=== PATIENT | female | born 1930 | race Caucasian/White ===

== ENCOUNTER 2019-05-08 01:51 | Inpatient (IN) | payer MEDICARE, BC ==
[~2019-05-08] VITALS: Ht 154.9 cm; Wt 41.8 kg
[2019-05-08 04:45] VITALS: BP 171/62
[2019-05-08] MEDS ORDERED: MOM 30ML SUSPENSION UDC PO PRN (04:45)
[2019-05-08] MEDS ORDERED: MAALOX 30 ML SUSP *UDC PO PRN (04:45)
[2019-05-08] MEDS ORDERED: ACETAMINOPHEN TAB 650MG DOSE (2X325MG) PO PRN (04:45)
--- NOTE | 2019-05-08 04:55 | HPEPDOC ---
General Date of Admission Date of Service: May 08, 2019 Chief Complaint The patient is a 89-year-old female admitted with a reason for visit of Small Bowel Obstruction. Source: Patient, RN/MD Exam Limitations: No limitations Timing/Duration: Day(s) Severity: Moderate History of Present Illness Ms. Manzanares is an 89 years old woman who is transferred from [facility] ER for management of partial SBO. Pt reporst nausea, vomiting, abdominal pain/ distension and constipation for the past three days. She says she has not been able to take anything by mouth. In the ER, CT abd/pelv showed partial SBO. Pt has hx/o chronic pain and takes opioid at home on a regular basis. Pt denies chest pain, SOB, fever or chills. Vitals are good with moderately elevated BP and mild tachycardia due to pain on arrival. Mental status is good. ER Labs: CBC normal, Na 127, BUN34, Cr 1.2, K 4.4, CO2 23, CA 9.5. Liver panel is normal. Mg 2.0. Past Medical History Medical History CAD, AMI, Arhtritis, HLD, Sciatica, HTN Surgical History Bladder suspension, Cholecystectomy, , Hysterectomy Family History Significant Family History: No pertinent family hx Social History * Smoker: former Smoker Alcohol: Denies Drugs: denies A-FIB/CHADSVASC A-FIB History Current/History of A-Fib/PAF?: No Review of Systems Constitutional: Denies: Chills, Fever, Malaise, Night Sweats, Weakness Eyes: Denies: Pain, Vision change ENT: Denies: Head Aches, Ear Pain, Dysphagia Skin: Denies: Rash, Lesions Pulmonary: Denies: Dyspnea, Cough, Pleuritic Chest Pain Cardiovascular: Denies: Chest Pain, Edema Gastrointestinal: Reports: Nausea, Vomiting, Abdominal Pain, Constipation Genitourinary: Denies: Dysuria, Frequency Hematologic: Denies: Bruising, Bleeding Excessively Endocrine: Denies: Polydipsia Musculoskeletal: Reports: Back Pain; Denies: Neck Pain Neurological: Denies: Weakness, Numbness, Change in speech, Confusion Psych: Reports: Mood Normal; Denies: Anxiety, Depression Physical Examination General Exam: Positive: Alert, Cooperative, No Acute Distress Eye Exam: Positive: PERRLA, Conjunctiva & lids normal ENT Exam: Positive: Atraumatic, Other ENT (dry mucosa) Neck Exam: Positive: Supple; Negative: JVD Chest Exam: Positive: Clear to auscultation, Normal air movement Heart Exam: Positive: Tachycardic, Normal S1, Normal S2 Abdomen Exam: Positive: BS Hyperactive, Soft, Other (distended); Negative: Tenderness Extremity Exam: Positive: Normal pulses; Negative: Edema Skin Exam: Negative: Rash, Breakdown Neuro Exam: Positive: Normal Speech, Strength at 5/5 X4 ext, Normal Tone Psych Exam: Positive: Mental status NL, Mood NL, Anxiety, Oriented x 3 Vital Signs see nursing note Assessment/Plan Partial SBO with hx/o Abdominal Surgery and Chronic Opioid use - Admit to inpatient - Pt refuses NG tube placement - NPO, IV fluid, pain management - Monitor and supplement electrolytes - Consult Surgery if not improving with conservative management - Lovenox for DVT prophylaxis Continue home meds for other chronic conditions. Plan / VTE VTE Prophylaxis Ordered?: Yes Plan IVF: Initiate Diet: Make NPO Activity: Encourage Ambulation Diagnostics: Check Labs Anticipated Discharge: Home Advanced Directives: Do Not Resuscitate (DNR) KWAME MITCHELL MD May 08, 2019 04:55
[2019-05-08] MEDS ORDERED: MORPHINE 4 MG/ML 1ML VIAL/SYRINGE (J2270) IV PRN (05:00)
[2019-05-08] MEDS ORDERED: ONDANSETRON 4MG/2ML VIAL (J2405) IV PRN (05:00)
[2019-05-08] MEDS ORDERED: PRAV20TA2 PO (05:37)
[2019-05-08] MEDS ORDERED: LOSA50TA5 PO (05:37)
[2019-05-08] MEDS ORDERED: METO1TAB7 PO (05:38)
[2019-05-08] MEDS ORDERED: NORC1TAB8 PO (05:38)
[2019-05-08 05:51] LABS: HEMATOCRIT 31.6 % (36.0-47.0); HEMOGLOBIN 10.7 g/dl (12.0-15.5); MEAN CORPUSCULAR HEMOGLOBIN 30.2 pg (27.0-33.0); MEAN CORPUSCULAR HGB CONC 33.9 g/dl (32.0-36.5); MEAN CORPUSCULAR VOLUME 89.3 fl (80.0-96.0); PLATELET COUNT, AUTOMATED 245 10^3/uL (150-450); RED BLOOD COUNT 3.54 10^6/uL (4.00-5.40); WHITE BLOOD COUNT 6.7 10^3/uL (4.0-10.0)
[2019-05-08 06:14] LABS: ALBUMIN 3.2 GM/DL (3.2-5.2); ALT/SGPT 36 U/L (12-78); BILIRUBIN,TOTAL 0.6 MG/DL (0.2-1.0); BLOOD UREA NITROGEN 27 MG/DL (7-18); CALCIUM LEVEL 8.3 MG/DL (8.8-10.2); CARBON DIOXIDE LEVEL 23 MEQ/L (21-32); CHLORIDE LEVEL 97 MEQ/L (98-107); CREATININE FOR GFR 0.89 MG/DL (0.55-1.30); GLOMERULAR FILTRATION RATE > 60.0 (>32); GLUCOSE, FASTING 85 MG/DL (70-100); MAGNESIUM LEVEL 1.9 MG/DL (1.8-2.4); POTASSIUM SERUM 4.3 MEQ/L (3.5-5.1); SODIUM LEVEL 132 MEQ/L (136-145); TOTAL PROTEIN 6.7 GM/DL (6.4-8.2)
[2019-05-08] MEDS: KCL 20MEQ IN D5/NS 1000ML 1,000 ML IV SCH ×2 (06:22→18:47)
[2019-05-08] MEDS ORDERED: FLUBLOK(EGG FREE)(QUAD)INFLUENZA VACC 0.5ML SYRINGE (90682)18YRS&OLDER IM PRN (08:00)
--- NOTE | 2019-05-08 09:13 | REP ---
Acute abdominal series three views including PA chest and supine upright abdomen: There are no comparisons. PA chest: Lung suero are hyperinflated. There are no infiltrates, nodules, masses or pleural effusions. Cardiac size is normal. The colin, mediastinum, skeletal structures are unremarkable except for left shoulder chronic impingement. There is no free subdiaphragmatic air. Impression: Hyperinflation. No free subdiaphragmatic air. Abdomen, supine upright views: There is opaque material throughout the colon. There is no colonic distension or obstruction. There is no small bowel distension or obstruction. There are no air-fluid levels. There are surgical clips in the abdominal right upper quadrant. There is demineralization. There is lumbar scoliosis convex left. There is lumbar degenerative disc disease. Impression: Next No bowel obstruction. Opaque material throughout the colon. Electronically Signed by Felipe Trinidad MD 05/08/2019 09:05 A
[2019-05-08] MEDS: ENOXAPARIN 30 MG/0.3 ML SYR (J1650) SC SCH (09:14)
[2019-05-08] MEDS: METOPROLOL SUCC (TopROL XL) 50MG **XL** TAB PO SCH (09:14)
[2019-05-08] MEDS ORDERED: ANEXSIA, NORCO 7.5MG/325MG TABLET(HYDROCODONE/APAP) PO PRN (12:00)
--- NOTE | 2019-05-08 12:58 | IPNPDOC ---
Text Note Date of Service The patient was seen on 05/08/19. NOTE Subjective: Patient is an 89-year-old female with a PMHx of CAD, Hx of NE, HTN, DLP, Arthritis, Sciatica who presented to [facility] as a transfer from [facility] because of a suspected partial small bowel obstruction. She was admitted to hospitalist service for further evaluation and treatment. Patient had initially reported nausea, vomiting, abdominal pain and constipation. 3 days. Patient was seen and examined at the bedside. . Currently, patient reports that she is not experiencing any nausea or vomiting. Denies any significant abdominal pain. Does report the ability to pass gas. Denies any urinary discomfort. Objective: Vitals (See below) General: Lying in bed, no acute distress, comfortable, AAOx3 HEENT: NC, AT CVS: +S1S2 Lungs: Fair air entry b/l, -w/r/r Abdomen: Soft, ND, NT Extremities: - Edema, - Calf tenderness Assessment and plan: s/p Partial SBO - Clinically patient denies any nausea, vomiting, abdominal pain. Does report ability to pass flatus - No bowel movements noted - No abdominal tenderness - No significant leukocytosis - XR Abdomen 05/08: No bowel obstruction. Opaque material throughout the colon. - Discussed with general surgery, Dr. Reyez - will advanced diet as tolerated - Will start Clear liquid diet today CAD - Hx of NE - c/w Pravastatin HTN - BP well controlled - c/w Metoprolol, Losartan - HCTZ on hold DLP - Will resume Pravastatin Arthritis / Sciatica - c/w Pain control as orderd DVT prophylaxis - c/w Lovenox Code status: - DNR / DNI VS,Fishbone, I+O VS, Fishbone, I+O Laboratory Tests 05/08/19 05:39 Red Blood Count 3.54 L, Mean Corpuscular Volume 89.3, Mean Corpuscular Hemoglobin 30.2, Mean Corpuscular Hemoglobin Concent 33.9, Red Cell Distribution Width 13.8, Calcium Level 8.3 L, Aspartate Amino Transf (AST/SGOT) 55 H, Alanine Aminotransferase (ALT/SGPT) 36, Alkaline Phosphatase 84, Total Bilirubin 0.6, Total Protein 6.7, Albumin 3.2 Vital Signs Date Time Temp Pulse Resp B/P (MAP) Pulse Ox O2 Delivery O2 Flow Rate FiO2 9/24/19 09:14 99 148/70 05/08/19 06:32 18 05/08/19 04:45 98.6 95 TRINIDAD HUGHES MD May 08, 2019 12:58
[2019-05-08 14:00] VITALS: BP 138/61
[2019-05-08 20:14] VITALS: BP 168/74
[2019-05-08 21:24] VITALS: BP 168/78
[2019-05-09 04:42] VITALS: BP 152/69
[2019-05-09 07:31] LABS: BLOOD UREA NITROGEN 11 MG/DL (7-18); CALCIUM LEVEL 8.2 MG/DL (8.8-10.2); CARBON DIOXIDE LEVEL 27 MEQ/L (21-32); CHLORIDE LEVEL 104 MEQ/L (98-107); CREATININE FOR GFR 0.56 MG/DL (0.55-1.30); GLOMERULAR FILTRATION RATE > 60.0 (>32); GLUCOSE, FASTING 117 MG/DL (70-100); MAGNESIUM LEVEL 1.9 MG/DL (1.8-2.4); SODIUM LEVEL 136 MEQ/L (136-145)
[2019-05-09] MEDS: ENOXAPARIN 30 MG/0.3 ML SYR (J1650) SC SCH (08:39)
[2019-05-09 08:44] VITALS: BP 151/68
[2019-05-09] MEDS: KCL 20MEQ IN D5/NS 1000ML 1,000 ML IV SCH (08:44)
[2019-05-09] MEDS: METOPROLOL SUCC (TopROL XL) 50MG **XL** TAB PO SCH (08:44)
[2019-05-09] MEDS ORDERED: DOCUSATE SODIUM 100 MG CAP PO SCH ×2 (09:00)
[2019-05-09] MEDS ORDERED: PRAVASTATIN 20 MG TAB PO SCH (09:00)
[2019-05-09] MEDS ORDERED: LOSARTAN 50 MG TAB PO SCH (09:00)
[2019-05-09] MEDS ORDERED: COLA100C5 PO (09:51)
[2019-05-09] MEDS ORDERED: FLUBLOK(EGG FREE)(QUAD)INFLUENZA VACC 0.5ML SYRINGE (90682)18YRS&OLDER IM ONE (13:00)
--- NOTE | 2019-05-09 13:31 | DS.PDOC ---
Discharge Summary General Date of Admission May 08, 2019 at 04:15 Date of Discharge 05/09/2019 Discharge Summary PROCEDURES PERFORMED DURING STAY: [None]. ADMITTING DIAGNOSES / DISCHARGE DIAGNOSES: s/p Partial SBO CAD HTN DLP Arthritis / Sciatica DVT prophylaxis COMPLICATIONS/CHIEF COMPLAINT: Abdominal pain / Transfer from [facility] HISTORY OF PRESENT ILLNESS: Patient is an 89-year-old female with a PMHx of CAD, Hx of [place], HTN, DLP, Arthritis, Sciatica who presented to [facility] as a transfer from [facility] because of a suspected partial small bowel obstruction. She was admitted to hospitalist service for further evaluation and treatment. Patient had initially reported nausea, vomiting, abdominal pain and constipation. 3 days. HOSPITAL COURSE: s/p Partial SBO - Clinically patient denies any nausea, vomiting, abdominal pain and still reports ability to pass flatus - No bowel movements noted; however, has inability to pass flatus - No abdominal tenderness - No significant leukocytosis - XR Abdomen 05/08: No bowel obstruction. Opaque material throughout the colon. - Discussed with general surgery, Dr. Reyez - braden advanced diet as tolerated - Has tolerated full diet CAD - Hx of [place] - c/w Pravastatin HTN - BP well controlled - c/w Metoprolol, Losartan - HCTZ on hold DLP - c/w Pravastatin Arthritis / Sciatica - c/w Pain control as ordered DVT prophylaxis - c/w Lovenox DISCHARGE MEDICATIONS: Please see below. ALLERGIES: Please see below. PHYSICAL EXAMINATION ON DISCHARGE: Vitals (See below) General: Lying in bed, no acute distress, comfortable, AAOx3 HEENT: NC, AT CVS: +S1S2 Lungs: Fair air entry b/l, no appreciable wheezing, rhonchi or rales Abdomen: Soft, nondistended and nontender Extremities: No evidence of edema, - Calf tenderness LABORATORY DATA: Please see below. ACTIVITY: [As tolerated]. DISCHARGE PLAN: Follow-up with PCP within 7 days Remain compliant with treatment plan and medications. Return to the ER if you experience any problems. DISPOSITION: Home DISCHARGE CONDITION: [Stable]. TIME SPENT ON DISCHARGE: 36 minutes Vital Signs/I&Os Vital Signs Date Time Temp Pulse Resp B/P (MAP) Pulse Ox O2 Delivery O2 Flow Rate FiO2 05/09/19 08:44 95 151/68 05/09/19 04:42 97.1 20 94 I&O- Last 24 Hours up to 6 AM 05/09/19 06:00 Intake Total 1690 ml Output Total 650 ml Balance 1040 ml Laboratory Data Labs 24H Laboratory Tests 2 05/08/19 18:50: Bedside Glucose (Misc Panel) 159H 05/08/19 23:59: Bedside Glucose (Misc Panel) 112H 05/09/19 06:56: Anion Gap 5L, Glomerular Filtration Rate > 60.0, Blood Urea Nitrogen 11#, Creatinine 0.56, Sodium Level 136, Potassium Level 4.0, Chloride Level 104, Carbon Dioxide Level 27, Calcium Level 8.2L, Magnesium Level 1.9 CBC/BMP Laboratory Tests 05/09/19 06:56 Calcium Level 8.2 L FSBS Laboratory Tests Test 05/08/19 18:50 05/08/19 23:59 Range/Units Bedside Glucose (Misc Panel) 159 112 83-110 MG/DL Discharge Medications Scheduled Docusate Sodium (Colace) 100 Mg Capsule, 100 MG PO BID Losartan/Hydrochlorothiazide (Losartan-Hctz 50-12.5 mg Tab) 1 Each Tablet, 1 TAB PO QHS, (Reported) Metoprolol Succinate (Metoprolol Succinate) 50 Mg Tab.er.24h, 50 MG PO DAILY, (Reported) Pravastatin Sodium (Pravastatin Sodium) 20 Mg Tablet, 20 MG PO DAILY, (Reported) Scheduled PRN Hydrocodone/Acetaminophen (Hagerman 7.5-325 Tablet) 1 Each Tablet, 1 TAB PO Q6H PRN for PAIN, (Reported) Allergies Coded Allergies: No Known Allergies (Verified Allergy, Unknown, 05/08/19) TRINIDAD HUGHES MD May 09, 2019 13:31
== END 2019-05-09 13:50 | disposition home or self-care (01) | DRG 389 ==
LOC: M MS4PR 04:15
PROVIDERS: ADMIT Internal Medicine; ATTEND Internal Medicine
DX: K56.609 Unspecified intestinal obstruction, unspecified as to partial versus complete obstruction (principal); E87.1 Hypo-osmolality and hyponatremia; I25.10 Atherosclerotic heart disease of native coronary artery without angina pectoris; I25.2 Old myocardial infarction; I10 Essential (primary) hypertension; M19.90 Unspecified osteoarthritis, unspecified site; Z79.899 Other long term (current) drug therapy; Z87.891 Personal history of nicotine dependence

== ENCOUNTER 2019-05-22 04:19 | Emergency (ER) | payer MEDICARE, BC ==
[~2019-05-22] VITALS: Ht 154.9 cm; Wt 42.3 kg
[~2019-05-22 04:19] MED LIST: COLA100C5 PO; LOSA50TA5 PO; METO1TAB7 PO; NORC1TAB8 PO; PRAV20TA2 PO
[2019-05-22] MEDS ORDERED: KETAMINE HCL IV ONE (05:00)
[2019-05-22] MEDS ORDERED: NS 500 ML IV ONE (05:00)
[2019-05-22] MEDS ORDERED: NS IV ONE (05:00)
[2019-05-22 05:11] LABS: BASO # 0.1 10^3/uL (0.0-0.2); BASO % 0.5 % (0.0-1.0); EOS # 0.2 10^3/uL (0.0-0.5); EOS % 1.3 % (0.0-3.0); HEMATOCRIT 36.5 % (36.0-47.0); HEMOGLOBIN 11.9 g/dl (12.0-15.5); LYMPH # 0.9 10^3/uL (1.5-5.0); LYMPH % 7.2 % (24.0-44.0); MEAN CORPUSCULAR HGB CONC 32.6 g/dl (32.0-36.5); MEAN CORPUSCULAR VOLUME 91.9 fl (80.0-96.0); MONO # 0.5 10^3/uL (0.0-0.8); NEUTROPHILS # 10.9 10^3/uL (1.5-8.5); NEUTROPHILS % 86.7 % (36.0-66.0); PLATELET COUNT, AUTOMATED 257 10^3/uL (150-450); RED BLOOD COUNT 3.97 10^6/uL (4.00-5.40); WHITE BLOOD COUNT 12.6 10^3/uL (4.0-10.0)
[2019-05-22 05:38] LABS: INR 1.09; PROTHROMBIN TIME 13.9 SECONDS (11.8-14.0)
[2019-05-22 06:03] LABS: ALBUMIN 3.4 GM/DL (3.2-5.2); ALT/SGPT 25 U/L (12-78); BILIRUBIN,DIRECT 0.2 MG/DL (0.0-0.2); BILIRUBIN,TOTAL 0.6 MG/DL (0.2-1.0); BLOOD UREA NITROGEN 17 MG/DL (7-18); CALCIUM LEVEL 8.8 MG/DL (8.8-10.2); CARBON DIOXIDE LEVEL 30 MEQ/L (21-32); CHLORIDE LEVEL 94 MEQ/L (98-107); CK-MB VALUE MASS 3.5 NG/ML (<3.6); CPK CREATINE PHOSPHOKINASE 89 U/L (26-192); CREATININE FOR GFR 0.78 MG/DL (0.55-1.30); GLOMERULAR FILTRATION RATE > 60.0 (>32); GLUCOSE, FASTING 122 MG/DL (70-100); LIPASE 66 U/L (73-393); MB/CK RELATIVE INDEX 3.93 (< OR =4); POTASSIUM SERUM 3.5 MEQ/L (3.5-5.1); SODIUM LEVEL 132 MEQ/L (136-145); TOTAL PROTEIN 7.1 GM/DL (6.4-8.2); TROPONIN I 2.76 NG/ML (< 0.10)
[2019-05-22] MEDS ORDERED: GASTROGRAFIN SOLUTION 30ML PO SCH (06:10)
[2019-05-22] MEDS ORDERED: MORPHINE 4 MG/ML 1ML VIAL/SYRINGE (J2270) IV ONE (06:15)
[2019-05-22] MEDS ORDERED: ISOVUE-370 76% 100ML VIAL (Q9967) As Ordered ONE (06:16)
[2019-05-22] MEDS ORDERED: DOCU100C16 PO (06:42)
--- NOTE | 2019-05-22 06:50 | REPVR ---
PROCEDURE INFORMATION: Exam: CT Chest With Contrast Exam date and time: 05/22/2019 6:10 AM Clinical history: 89 years old, female; Chest pain; Type not specified TECHNIQUE: Imaging protocol: Computed tomography of the chest with intravenous contrast. Radiation optimization: All CT scans at this facility use at least one of these dose optimization techniques: automated exposure control; mA and/or kV adjustment per patient size (includes targeted exams where dose is matched to clinical indication); or iterative reconstruction. Contrast material: ISO; Contrast volume: 80 ml; Contrast route: AC; COMPARISON: CR Abdomen,Flat Upright,PA CHEST 05/08/2019 8:48 AM FINDINGS: Lungs: The lungs are hyperlucent and hyperinflated consistent with emphysema. Mild peripheral increased reticulations are seen in both lung bases. There is a predominantly groundglass nodule in the right upper lobe measuring 7 x 5 mm (image 22 of series 201). There is 3 mm nodule in the left upper lobe (image 37 of series 201). There is mild thickening of the left fissure inferiorly. There is a band of density in the right middle lobe, consistent with platelike atelectasis versus scar. Pleural space: There are no pleural effusions present. Heart: The heart is normal in size. Mitral annulus calcification and coronary artery calcifications are noted. Pulmonary arteries: The pulmonary arteries are not enlarged. No filling defects are seen to indicate an acute pulmonary embolism. Aorta: The thoracic aorta demonstrates severe atherosclerotic calcification. There is no thoracic aortic aneurysm or evidence of dissection. Lymph nodes: No lymphadenopathy is seen. Bones/joints: Degenerative endplate changes are seen at multiple levels in the visualized spine. The bones are osteopenic. Soft tissues: The soft tissues appear unremarkable. Other findings: There is mild elevation of the left diaphragm. IMPRESSION: 1. Emphysema. 2. Extensive atherosclerotic disease of the thoracic aorta without aneurysm or dissection. Please see the report for the CT scan abdomen and pelvis for additional findings. 3. 7 x 5 mm groundglass nodule in the right upper lobe. Recommend CT at 6-12 months to confirm persistence of the nodule, then CT at 3 and at 5 years. (Nick et al., Fleischner Society, 2017) 4. 3 mm nodule in the left upper lobe. For patients at low risk (minimal or absent history of smoking and of other known risk factors), no routine follow-up is indicated. For patients at high risk (history of smoking or of other known risk factors), consider optional CT at 12 months. (Nick et al., Fleischner Society, 2017) Electronically signed by: Fiordaliza Albert On 05/22/2019 06:50:06 AM
--- NOTE | 2019-05-22 07:03 | REPVR ---
PROCEDURE INFORMATION: Exam: CT Abdomen And Pelvis With Contrast Exam date and time: 05/22/2019 6:10 AM Clinical history: 89 years old, female; Abdominal pain; Generalized TECHNIQUE: Imaging protocol: Computed tomography of the abdomen and pelvis with intravenous contrast. Radiation optimization: All CT scans at this facility use at least one of these dose optimization techniques: automated exposure control; mA and/or kV adjustment per patient size (includes targeted exams where dose is matched to clinical indication); or iterative reconstruction. Contrast material: ISO; Contrast volume: 80 ml; Contrast route: AC; COMPARISON: No relevant prior studies available. FINDINGS: Liver: There is an ovoid soft tissue nodule along the posterior surface of the liver measuring 1.7 x 0.9 x 1.7 cm. Gallbladder and bile ducts: There has been a cholecystectomy. The common bile duct measures 10 mm, only mildly dilated for the patient's age. Pancreas: There is diffuse atrophy of the pancreatic parenchyma. Spleen: The spleen is normal. Adrenals: The adrenal glands are diffusely thickened but without discrete nodules. Kidneys and ureters: There is a nonobstructing 10 x 4 mm stone in the right kidney. There is no hydronephrosis. The nondilated distal ureters are difficult to trace, but no stones are seen along their expected course. Stomach and bowel: There is no dilation or thickening of the colon. The small bowel appears unremarkable. Appendix: The appendix is not specifically identified. Intraperitoneal space: There is no free intraperitoneal air. There is no evidence of free intraperitoneal or pelvic fluid. Vasculature: The visualized vasculature demonstrates marked atherosclerotic disease. There is heavy calcification of the origin of the SMA and there is no contrast filling of the proximal SMA. There is reconstitution of the SMA approximately 3.4 cm from its origin. There is heavy calcification of the proximal celiac artery with a likely high-grade stenosis of the proximal celiac artery. There is a mild relative dilation of the infrarenal abdominal aorta, measuring 2.3 x 2.3 cm at the site. Lymph nodes: No lymphadenopathy is seen. Bladder: The bladder is unremarkable. No stones identified. Reproductive: The uterus is absent. Bones/joints: Degenerative endplate changes are seen at multiple levels in the visualized spine. The bones are osteopenic. There is facet arthropathy in the lumbar spine. Soft tissues: There is a soft tissue nodule measuring 14 x 19 x 10 mm in the left upper quadrant adjacent to the diaphragm. Injection granulomata are seen in the buttocks bilaterally. IMPRESSION: 1. Extensive atherosclerotic disease of the abdominal aorta and its branch vessels. Mild relative dilation of the infrarenal abdominal aorta measuring 2.3 x 2.3 cm. 2. 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 4. No acute findings in the small bowel or colon. 5. Indeterminate soft tissue nodules in the left subdiaphragmatic region and along the surface of the right lobe of the liver posteriorly. Electronically signed by: Fiordaliza Albert On 05/22/2019 07:02:41 AM
[2019-05-22] MEDS ORDERED: NS 1,000 ML IV SCH (07:45)
[2019-05-22] MEDS ORDERED: ASPIRIN 81 MG CHEW TABLET PO ONE (08:00)
[2019-05-22] MEDS ORDERED: MORPHINE 2 MG/ML 1ML VIAL (J2270) IV PRN (08:00)
[2019-05-22] MEDS ORDERED: HEPARIN SOD (PORCINE) 5000 UNITS/ML VIAL IV ONE (08:00)
[2019-05-22 08:27] LABS: CK-MB VALUE MASS 3.2 NG/ML (<3.6); MB/CK RELATIVE INDEX 4.1 (< OR =4); TROPONIN I 2.25 NG/ML (< 0.10)
[2019-05-22] MEDS ORDERED: HEPARIN DRIP 25,000 UNITS in IV 1 EA IV SCH (09:00)
[2019-05-22 10:00] VITALS: BP 114/58
--- NOTE | 2019-05-22 20:35 | ECGEPIP ---
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
--- NOTE | 2019-05-23 08:16 | ECGEPIP ---
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
== END 2019-05-22 10:06 | disposition short-term general hospital (02) ==
LOC: M ED 04:19
DX: I48.3 Typical atrial flutter (principal); R00.0 Tachycardia, unspecified; I48.91 Unspecified atrial fibrillation; R94.31 Abnormal electrocardiogram [ECG] [EKG]; I21.4 Non-ST elevation (NSTEMI) myocardial infarction; I77.4 Celiac artery compression syndrome; R10.9 Unspecified abdominal pain; K76.9 Liver disease, unspecified; J43.9 Emphysema, unspecified; I10 Essential (primary) hypertension; E78.5 Hyperlipidemia, unspecified; G89.29 Other chronic pain; M54.9 Dorsalgia, unspecified; Z87.891 Personal history of nicotine dependence; R91.8 Other nonspecific abnormal finding of lung field; F17.200 Nicotine dependence, unspecified, uncomplicated; Z79.899 Other long term (current) drug therapy
CPT/HCPCS: 71260; 74177; 80048; 80076; 82550; 82553; 83605; 83690; 84484; 85025; 85610; 85730; 93005; 96361; 96374; 96375; 96376; 99285; J2270; Q9967